=== PATIENT | female | born 1975 | race Caucasian/White ===

== ENCOUNTER → 2018-08-10 11:02 | Outpatient (CLI) | payer SELFPAY ==
[2016-04-01 07:04] VITALS: BMI 28.6
[2018-08-10 14:58] LABS: Color, Urine Yellow (Yellow); Glucose, Dipstick Normal (Normal); Ketone-Dipstick 5 mg/dl (Negative); Leukocyte Esterase-Dipstick 25 /ul (Negative); Nitrite-Dipstick Negative (Negative); Occult Blood-Urine Negative /ul (Negative); Protein-Dipstick Negative (Negative); Urine Bilirubin Dipstick Negative (Negative); Urine Clarity Sl. Cloudy (Clear); Urine Urobilinogen Normal (Normal)
[2018-08-10 14:59] LABS: Absolute Lymphocyte Count 1.54 X10^3/ul (0.83-4.51); Absolute Neutrophil Count 7.6 X10^3/uL (2.0-7.7); Basophil# 0.01 X10^3/uL; Basophil% 0.1 % (0-1); Eosinophil# 0.03 X10^3/uL; Eosinophils% 0.3 % (0-5); Hematocrit 40.8 % (37-47); Hemoglobin 13.6 g/dl (12.0-15.0); Lymphocyte # 1.54 X10^3/ul (4.0); Lymphocyte % 15.6 % (19-41); Mean Corp Hgb Conc 33.3 g/gl (32-36); Mean Corpuscular Hgb 28.3 pg (27.0-32.0); Mean Platelet Vol. 10.7 fl (6.2-12.0); Monocyte# 0.62 X10^3/uL; Monocyte% 6.3 % (0-10); Neutrophil # 7.64 X10^3/uL (2.7-7.7); Neutrophil % 77.4 % (47-70); Platelet Count 219 K/mm3 (150-450); RBC Distribution Width CV 14.1 % (11.6-14.6); RBC Distribution Width SD 44.1 fl (35.1-43.9); White Blood Count 9.9 K/mm3 (4.4-11.0)
[2018-08-10 15:00] LABS: POSITIVE COUNT NO; POSITIVE DIFFERENTIAL NO; POSITIVE MORPHOLOGY NO
[2018-08-10 15:25] LABS: Thyroid Stim Hormone (TSH) 0.47 uIU/mL (0.358-3.74)
[2018-08-10 16:26] LABS: Chlamydia Trachomatis by PCR Negative (Negative); Neisserai gonorrhoeae by PCR Negative (Negative); Probe Check PASS; Sample Adequacy Control PASS; Specimen Processing Control PASS
[2018-08-13 10:12] LABS: HIV - WCH Non-Reactive (Nonreactive); Hepatitis B Surface Antigen Non-Reactive (Nonreactive); Hepatitis C Antibody Non-Reactive (Nonreactive); Rubella IgG 145.1 IU/mL
[2018-08-17 05:48] LABS: Prenatal RPR NONREACTIVE (NONREACTIVE)
== END ==
PROVIDERS: Visit Provider Obstetrics & Gynecology
DX: Z11.3 Encounter for screening for infections with a predominantly sexual mode of transmission (principal); N91.2 Amenorrhea, unspecified; Z34.81 Encounter for supervision of other normal pregnancy, first trimester
CPT/HCPCS: 36415; 81002; 84443; 84702; 85025; 86703; 86762; 86803; 87340; 87491; 87591

== ENCOUNTER → 2018-12-06 10:03 | Outpatient (CLI) | payer SELFPAY ==
[2018-12-06 11:10] LABS: Hemoglobin 11.3 g/dL (12.0-15.0); Mean Corp Hgb Conc 32.3 g/dL (32-36); Mean Corpuscular Volume 92.8 fL (81-99); Mean Platelet Vol. 10.5 fl (6.2-12.0); Platelet Count 179 K/mm3 (150-450); RBC Distribution Width CV 14.9 % (11.6-14.6); RBC Distribution Width SD 51.4 fl (35.1-43.9); Red Blood Count 3.77 M/mm3 (4.2-5.4)
[2018-12-06 11:16] LABS: Glucose Challenge Gest 1H 50g 194 mg/dL (70-140)
== END ==
PROVIDERS: Visit Provider Obstetrics & Gynecology
DX: Z34.83 Encounter for supervision of other normal pregnancy, third trimester (principal)
CPT/HCPCS: 36415; 82950; 85027

== ENCOUNTER → 2019-02-07 11:26 | Outpatient (CLI) | payer SELFPAY ==
[2016-04-01 07:04] VITALS: BMI 28.6
== END ==
PROVIDERS: Referring Provider Obstetrics & Gynecology; Visit Provider Obstetrics & Gynecology
DX: Z36.85 Encounter for antenatal screening for Streptococcus B (principal)
CPT/HCPCS: 87077; 87081; 87186

== ENCOUNTER 2019-02-22 19:03 | Inpatient (IN) | payer SELFPAY ==
[2016-04-01 07:04] VITALS: BMI 28.6
[2019-02-22 19:41] LABS: Bedside Glucose 98 mg/dL (70-110)
[2019-02-22] MEDS: Lactated Ringers 1,000 ML 200 ML IV (19:45)
[2019-02-22 19:54] LABS: Absolute Lymphocyte Count 1.42 X10^3/uL (0.83-4.51); Absolute Neutrophil Count 8.7 X10^3/uL (2.0-7.7); Basophil# 0.02 X10^3/uL; Basophil% 0.2 % (0-1); Eosinophil# 0.03 X10^3/uL; Eosinophils% 0.3 % (0-5); Hematocrit 38.4 % (37-47); Hemoglobin 12.6 g/dL (12.0-15.0); Lymphocyte # 1.42 X10^3/ul (4.0); Mean Corp Hgb Conc 32.8 g/dL (32-36); Mean Corpuscular Hgb 29.6 pg (27.0-32.0); Mean Corpuscular Volume 90.4 fL (81-99); Monocyte# 0.68 X10^3/uL; Monocyte% 6.2 % (0-10); NRBC Flagged by Analyzer 0 % (0-5); Neutrophil % 79.7 % (47-70); Platelet Count 171 K/mm3 (150-450); RBC Distribution Width SD 52.3 fl (35.1-43.9); Red Blood Count 4.25 M/mm3 (4.2-5.4); White Blood Count 10.9 K/mm3 (4.4-11.0)
[2019-02-22] MEDS: Oxytocin 30 units/NS 500 ml 30 UNITS/500 ML IV.SOLN 334 UNITS IV (20:04)
--- NOTE | 2019-02-22 20:15 | PCM.HP.BLA ---
History and Physical Date of Admission: 02/22/19 ACOG ANTEPARTUM RECORD - HISTORY AND PHYSICAL (02/22/2019) Name: CANDELARIA PRUITT History of This : This is a 43-year-old 8 para 3 AB 4 who presents to labor and delivery in advanced labor. Patient had rupture of membranes at about 5 PM today and presented to labor and delivery at approximately 7 PM in active labor. care has been uneventful except for gestational diabetes controlled well with glyburide. She does have a history of rapid second stage with her third child. She was scheduled for induction next Monday. OB Physician: ALEXANDRE 's Physician: PED BRAKE ADJUSTER ...................................................................... : 1975 Age: 43 Address: [address] [place] [address] Phone: (H) [phone] (O) [phone] Insurance Carrier: Emergency Contact: SRIDEVI DANG [phone] ...................................................................... Final FRANCE: 03/05/19 By Ultrasound: 10 weeks 3 days PARITY: (G-Total Pregnancies P-Fullterm,Premature,Induced AB,Spont AB, Ectopics, Multiple,Living) FRANCE CONFIRMATION: By LMP: 06/04/18 Final FRANCE: 03/05/19 OB PROBLEM LIST: AMA - MSAFP and cfDNA testing declined CF testing declined GBS + x 3 in the past Hx of 4 SAB's Patient with Gestational DM; try diet control first --FBS not controlled with diet; start Glyburide; start BPP/NST weekly Rapid second stage with third child ALLERGIES: NKA NKDA Sulfa Nauseated MEDICATIONS: glyburide 5 mg tablet One by mouth once a day with dinner Vitamin Tablet daily Prometrium 200 Mg Capsule take 1 tablet q 12 hours SOCIAL HISTORY: Smoking - Never Alcohol Use - denies drinking Diet - balanced Diet Lifestyle - low stress lifestyle and Exercise - regular 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 Illicit Drug Use - denies use of street drugs Sexual Activity - Residence - lives with Place of - No [place] Spouse-Sig Other Name - Wilmer Spouse-Sig Other Occupation - [employer]--co-band cutting machine operator Spouse-Sig Other Phone No - [phone] Children Name(s) - Myesha (12) Alexander (14), Ezekiel (17) PRIOR DELIVERY HISTORY DEL DATE GEST LAB WT LB WT OZ TYPE ANES LABOR TX 06 Sep 14 40 12 8 2 Vag Epidural No 10 Sep 10 7 0 0 0 Sab Epidural No 15 May 15 10 0 0 0 Vag Epidural No 15 Mar 11 5 0 0 0 Sab None No 17 Apr 01 39 5 8 4 Vag Epidural No Feb 19 5 0 0 0 Sab None No Feb 12 40 7 6 12 Vag Epidural No ANTEPARTUM FLOW CHART VISIT RTC FU F F DC U U DATE WK MD WKS HT PN HR M SS BP ED WT DC GL D EF ST __ ____ ___ __ __ ___ __ __ __ ___ __ __ __ ___ __ 09 Feb JMW 1 38 V + + 114/76 sl 172 - - 2+ 80 -1 Feb JMW 1 37 + + 110/76 sl 172 - - Jan JMW + + / 0 175 - - Jan JMW 1 36 V + + 118/70 sl 171 - - 1+ 75 -2 Jan JMW 1 35 + + 110/72 sl 172 - - Jan JMW 1 34 V + + 110/70 0 169 tr - 05 Jan JMW 1 33 + + 104/70 0 169 tr - Dec JMW 2 31 + + 136/78 0 168 tr - Jan 12 JMW 1 30 + + 136/86 0 171 - - Dec 09 JMW 4 28 + + 130/76 tr 171 tr 1+ 27 Nov 05 JMW 4 24 + + 124/84 0 164 tr - Oct 01 JMW 4 20 + US 138/82 0 162 tr - Aug 26 JMW 5 14 U+ 116/76 161 tr - ANTEPARTUM NOTE(S): Feb 21 2019: Blood sugar log copied for review. Feb 14 2019: Feeling well., BPP 11/22; BS marginal but diet excursions Feb 11 2019: Feb 07 2019: Doing well. Blood sugars copied for review Jan 31 2019: Periods of heart palpitations x 3-4 d, while resting Jan 24 2019: good BS control now; BPP 10/10 Jan 17 2019: FBS still 100-105; inc Glyburide to 5.0 mg Jan 03 2019: good FM; start PM glyburide, call with BS 1 wk Dec 26 2018: cold symptoms., FBS elevated---modify diet Dec 06 2018: CBC,OGCT Today,Good FM,Acid Reflux Nov 09 2018: Glucola/Instructions Given,Good FM Oct 11 2018: Feeling Well, Good FM, US OK Sep 07 2018: Stomach issues, feeling better today COMPREHENSIVE ANTEPARTUM NOTE(S): Feb 21 2019: Scheduled for Induction at [facility] L and D on 02/27/19 to arrive at 0700 to call at 0500. Questions answered and consents signed. Spoke with Gregorio WALKER JD Feb 21 2019: Candelaria is here for her NST at 38 w 2 d. She states that she is tired, otherwise, okay. She reports good FM. Denies spotting/LOF. States that she has periods of more uncomfortable ctx's, but this resolves. Minimal edema noted below knees. Mild variable decels noted on EEFM, acoustic stim used x 1. NST reactive, read per Dr. Vinson, but will have already scheduled BPP for mild variable decels. AW Feb 14 2019: Candelaria is here for her NST at 37 w 2 d. She states that she is feeling well, States that she has been noting less cramping than she was experiencing over last weekend, and Monday. Reports good FM. Denies spotting/leaking fluid. Slight edema noted below knees. NST reactive, read per Dr. Vinson. AW Feb 11 2019: H taken to OB. tkg Feb 07 2019: Candelaria is here for her NST at 36 w 2 d. She states that she feels tired, but good. She notes good FM. Spotting/leaking fluid denied. She states that she feels occasional mild cramping. Slight edema noted around ankles/ NST reactive, read per Savanna Breen CNM. AW Feb 07 2019: BPP 09/20. NST single subtle ? late likely variable. Check NST Monday. Call or to L and D if any decreased movement. Jan 31 2019: Candelaria is here for her NST at 35 w 2 d. She states that she is feeling well generally, but for the past 3-4 days she has been experiencing rapid heart beat that occurs while she is resting/sitting, and lasts approximately 30-60 seconds. Denies caffeine intake, new medications, lack of sleep. She states that she does not notice tachycardia at night. Denies SOB with tachycardiac episodes. Dr. Vinson notified. Candelaria states that she notes good FM. Denies spotting/cramping/leaking fluid. Slight edema noted. NST reactive, read per Dr. Vinson. AW Jan 31 2019: Good BS control. Avoid caffeine and stimulants and increase po water. Jan 24 2019: Candelaria is here for her NST at 34 w 2 d. She reports that she has a cold. Has been noting off and on bladder pressure for several days. Not sure she is completely emptying her bladder. CCMS urine specimen obtained. Long urine dip shows specific gravity of 1.010, pH of 6, and TR protein; all other values are NEG. Candelaria reports good FM. Feels occasional mild cramping. Denies spotting/leaking fluid. Slight edema noted below knees. NST reactive, read per Dr. Vinson. Report of bladder pressure/long dip to DR. Vinson. Blood sugar log copies obtained for review. AW Jan 17 2019: NST/EEFM explained. NST reactive, read per Dr. Vinson. AW Jan 03 2019: Copied blood sugars for review. FILEMON Dec 06 2018: Reports +Fm, discussed after this point to do kick counts if noticing less movement, understands method. FHR 150. Feeling well, nausea has subsided, but now has acid reflux. Knows its because she eats right before bed and doesn't sleep propped. Trying two tums at HS. Educated on increased water, elevation for sleep and not eating within two hours of sleep. Will call if worsens and needing Rx. Reviewed warning signs and when to call office. Will return in 4 weeks to see GINNY, discussed with MD clark. Prefers him only for . Reviewed recommnedations for extra testing for AMA and declines at this time - Sep 12 2018: Candelaria stating she has 5 days left of Prometrium 200mg taking one q 12 hrs and was told at her visit 09/07 to keep taking. She will need RF's if she is to continue. Are you planning to keep her on this ? Or is she to stop ? Sep 07 2018: Candelaria is here for her NOB visit at 14 w 3 d, she is a A4 L3 with an FRANCE of 03/04/2019. She and her , Wilmer, have one daughter and two sons at home, all of whom were delivered by at [facility]. She states that she was GBS+ for all three of her children. Past history updated. Candelaria is familiar with office practice patterns, and her labs were drawn at her last visit. Delivery at [facility] with an epidural is planned and she will formula feed the baby. Emergencies/danger signs to report, round ligament pain, reporting s/s of a UTI, and common OTC medications approved/not approved for use during reviewed. She is a life long non-smoker, and denies use of drugs or ETOH. Candelaria has been taking an OTC vitamin and state sthat she tolerates these well. Genetic Screening form completed, AMA and 4 SAB's being of note. She declines MSAFP and CF testing, consent signed as such. She also declines cfDNA testing. She takes Prometrium, as per order. Candelaria states that she experienced some first trimester nausea/food aversions, but that had mostly resolved; but she states that after eating on Monday she has had stomach issues, like nausea and diarrhea. She states that today she is starting to feel better. She has not eaten or kept much food in this week, and has been trying to eat small amounts of bland foods. Candelaria states that she generally eats a well balanced diet, limiting empty calories, and drinking plenty of water. Reviewed water and dietary needs during , including caloric needs, and limiting caffeien to one cup a day. Printed guide for food safety provided with review. Candelaria states that she keeps physically active, and knows lifting restrictions. Kegel exercises reviewed. She states that she has no questions following NOB visit, and voices understanding of all information provided during same. FHT's checked with Doppler before NOB visit started, as Candelaria was concerned about the baby since she's been sick. FHT's 150's noted low midline, with Doptone. Candelaria states that she feels better after hearing FHT's. AW New Aug 10 2019: Candelaria is being seen for missed menses. . UPT in office is faintly positive. LMP 422-19. Pt is about 9 weeks and 4 days. FRANCE 1-27-20. Pap and cultures due today. Pt states she has been taking the prometrium since her missed AB in February. information gone over. Pt did state she had some bleeding at the 4-5 week melissa but has not had any since. AM Aug 10 2019: ok REVIEW OF SYSTEMS: GENERAL - Denies fever, or chills SKIN - Denies rash, new skin lesions, or change in moles EYES - Denies blurred vision, or change in visual acuity EARS - Denies ear pain, or difficulty hearing NOSE - Denies nasal congestion, discharge, or bleeding MOUTH - Denies sore throat, or difficulty swallowing NECK - Denies pain or swelling RESPIRATORY - Denies shortness of breath, cough, wheezing CARDIOVASCULAR - Denies palpitations, chest pain, orthopnea, PND, peripheral edema, syncope or claudication GASTROINTESTINAL - Denies nausea, vomiting, diarrhea, constipation, Denies abdominal pain, melena and or bright red blood GENITOURINARY - Denies dysuria, frequency of urination, urgency, or hesitancy MUSCULOSKELETAL - Denies joint or muscle pain, or back pain NEUROLOGICAL - Denies localized numbness, weakness, or tingling PSYCHIATRIC - Denies depression, anxiety, substance abuse or suicide attempts ENDOCRINE - Denies heat or cold intolerance, weight loss or gain, increasing thirst HEMATO-IMMUNOLOGIC - Denies easy bruising, bleeding, oral ulcerations or recurrent infections GENETICS SCREENING: Age 35+ years: Yes Thalassemia: No Neural Tube Defect: No Down Syndrome: No NED-SACHS: No Sickle Cell Disease: No Hemophilia: No Musc. Dystrophy: No Cystic Fibrosis: No-declines screening Juan Pablo Chorea: No Mental Retardation: No Fragile X: No Other genetic: No Other defects: No SABs/still births: Yes x4 Drugs since LMP: Progesterone INFECTION HISTORY: High risk AIDS: No High risk Hepatitis: No Exposed to TB: No Exposed to Herpes: No Rash/viral illness since LMP: No History of STD: No Comments: Herpes simplex in genitals MENSTRUAL HISTORY: *Menses Amount/Duration: normal amountMenses Regularity: RegularFrequency: monthlyMenarche (Age Onset): 14* PAST SUMMARY: PARITY: 1. Total Pregnancies............ 8 2. Full Term Pregnancies........ 3 3. Premature.................... 0 4. Abortions - Induced.......... 0 5. Abortions - Spontaneous...... 4 6. Ectopics..................... 0 7. Multiple Births.............. 0 8. Living Children.............. 3 PAST #1: Date of :.................. 09/22/09 Gestation Weeks:................ 7 Length of labor(hours):......... 0 Sex:............................ Weight-lbs:............... 0 Weight-oz:................ 0 Type of Delivery:............... Sab Type of Anesthesia:............. Epidural Place of Delivery:.............. HOME Treatment of Labor?:.... No Comment: SAB PAST #2: Date of :.................. 03/30/10 Gestation Weeks:................ 5 Length of labor(hours):......... 0 Sex:............................ Weight-lbs:............... 0 Weight-oz:................ 0 Type of Delivery:............... Sab Type of Anesthesia:............. None Place of Delivery:.............. HOME Treatment of Labor?:.... No Comment: SAB PAST #3: Date of :.................. 03/14/11 Gestation Weeks:................ 40 Length of labor(hours):......... 7 Sex:............................ F Weight-lbs:............... 6 Weight-oz:................ 12 Type of Delivery:............... Vag Type of Anesthesia:............. Epidural Place of Delivery:.............. [place] Treatment of Labor?:.... No Comment: NONE PAST #4: Date of :.................. 09/18/13 Gestation Weeks:................ 40 Length of labor(hours):......... 12 Sex:............................ M Weight-lbs:............... 8 Weight-oz:................ 2 Type of Delivery:............... Vag Type of Anesthesia:............. Epidural Place of Delivery:.............. [place] Treatment of Labor?:.... No Comment: PAST #5: Date of :.................. 05/28/14 Gestation Weeks:................ 10 Length of labor(hours):......... 0 Sex:............................ Weight-lbs:............... 0 Weight-oz:................ 0 Type of Delivery:............... Vag Type of Anesthesia:............. Epidural Place of Delivery:.............. [place] Treatment of Labor?:.... No Comment: PAST #6: Date of :.................. 04/01/16 Gestation Weeks:................ 39 Length of labor(hours):......... 5 Sex:............................ M Weight-lbs:............... 8 Weight-oz:................ 4 Type of Delivery:............... Vag Type of Anesthesia:............. Epidural Place of Delivery:.............. [place] Treatment of Labor?:.... No Comment: IOL, RAPID 2ND STAGE PAST #7: Date of :.................. 03/09/18 Gestation Weeks:................ 5 Length of labor(hours):......... 0 Sex:............................ Weight-lbs:............... 0 Weight-oz:................ 0 Type of Delivery:............... Sab Type of Anesthesia:............. None Place of Delivery:.............. none Treatment of Labor?:.... No Comment: DATE APPROX PHYSICAL EXAMINATION General Appearence: 43 yo female in no acute distress Vital Signs: AF, VSS Heart: RRR without rubs or gallops Lungs: CTA x 2 Breasts: deferred Abdomen: gravid Pelvis: Cervix: 6 cm 90% effaced gross rupture of membranes Presentation: cephalic Station: -1 Fetus: Size: AGA Movement: present Heart: present Labs for : CANDELARIA PRUITT since 06/08/2018 ORDER DATEIN DESCRIPTION VALUE UNITS RANGE A+ COMMENT CBC W/DIFF, AUTOMATED 02/22/19 NOTE Original Ordering Provider: Selvin Vinson WBC 10.9 K/mm3 4.4-11.0 RBC 4.25 M/mm3 4.2-5.4 HGB 12.6 g/dL 12.0-15.0 HCT 38.4 % 37-47 MCV 90.4 fL 81-99 MCH 29.6 pg 27.0-32.0 MCHC 32.8 g/dL 32-36 RDW CV 16.0 % 11.6-14.6 H RDW SD 52.3 fl 35.1-43.9 H PLT 171 K/mm3 150-450 MPV 11.0 fl 6.2-12.0 NEUT% 79.7 % 47-70 H LY% 13.0 % 19-41 L MONO% 6.2 % 0-10 EO% 0.3 % 0-5 BASO% 0.2 % 0-1 IM GRAN % 0.600 % 0.0-0.9 IG% - Immature Granulocytes (promyelocytes, myelocytes and metamyelocytes) > 1% indicates that a LEFT SHIFT is Present. ABSOLUTE NEUT 8.7 X10 3/uL 2.0-7.7 H ABSOLUTE LYMPH 1.42 X10 3/uL 0.83-4.51 NRBC, FLAGGED 0 % 0-5 BEDSIDE GLUCOSE 02/22/19 NOTE Original Ordering Provider: Selvin Vinson BEDSIDE GLU 98 mg/dL 70-110 MANAGEMENT OF PATIENT CARE PER NURSING PROTOCOL CULTURE, GROUP B STREPTOCOCCUS 02/07/19 NOTE Original Ordering Provider: Selvin Vinson IZA Culture ORGANISM 1: Streptococcus agalactiae (B) Amount Growth Growth Streptococcus agalactiae (B): REACTION Ampicillin $ <=0.25 S Benzylpenicillin NF <=0.06 S Ceftriaxone $ <=0.12 S Clindamycin $$ <=0.25 S Inducable Clindamycin Resistan NEG Linezolid $$$$ <=2 S Vancomycin $ 0.5 S Reference Range: S= Susceptible, I= Intermediate, R= Resistant MICS are expressed in micrograms per mL (NF) indicates non-formulary drug at [facility]. Approval by Infectious Disease Specialist required before non-formulary drugs may be ordered and/or dispensed. Testing performed on Vitek 2 instrument Reviewed by SELVIN Reviewed by SELVIN GLUCOSE TOLERANCE-3 HOUR 12/13/18 NOTE Original Ordering Provider: SELVIN VINSON GLUCOSE TOLERANCE-3 HOUR 3 HOUR GLUCOSE TOLERANCE Reference Range BLOOD Adult(non) Adult() FASTING _114 mg/dl <100 mg/dL 95 mg/dL 12/13/18.1444.JLN. 1 HOUR _232 mg/dl 70-115 mg/dL 180 mg/dL 12/13/18.1444.JLN. 2 HOUR _166 mg/dl <140 mg/dL 155 mg/dL 12/13/18.1444.JLN. 3 HOUR _123 mg/dl 70-115 mg/dL 140 mg/dL 12/13/18.1444.JLN. URINE-GLUCOSE Fasting......... _NA (NORMAL) 12/13/18.1443.JLN. 1 hour.......... _NA (NORMAL) 12/13/18.JLN. 2 hours......... _NA (NORMAL) 12/13/18.1443.JLN. 3 hours......... _NA (NORMAL) 12/13/18.1443.JLN. URINE-KETONES Fasting......... _NA (NEGATIVE) 12/13/18.1443.JLN. 1 hour.......... _NA (NEGATIVE) 12/13/18.JLN. 2 hour.......... _NA (NEGATIVE) 12/13/18.1443.JLN. 3 hour.......... _NA (NEGATIVE) 12/13/18.1443.JLN. Reviewed by SELVIN GLUCOSE CHALLENGE GEST 1H 50G 12/06/18 NOTE Original Ordering Provider: Selvin Vinson GLU GEST 50G 1H 194 mg/dL 70-140 H Reviewed by SELVIN CBC-COMPLETE BLOOD CNT NO DIFF 12/06/18 NOTE Original Ordering Provider: Selvin Vinson WBC 9.0 K/mm3 4.4-11.0 RBC 3.77 M/mm3 4.2-5.4 L HGB 11.3 g/dL 12.0-15.0 L HCT 35.0 % 37-47 L MCV 92.8 fL 81-99 MCH 30.0 pg 27.0-32.0 MCHC 32.3 g/dL 32-36 RDW CV 14.9 % 11.6-14.6 H RDW SD 51.4 fl 35.1-43.9 H PLT 179 K/mm3 150-450 MPV 10.5 fl 6.2-12.0 Reviewed by SELVIN RPR 08/10/18 NOTE Original Ordering Provider: Selvin Vinson RPR NONREACTIVE NONREACTIVE Reviewed by SELVIN HEPATITIS C ANTIBODY 08/10/18 NOTE Original Ordering Provider: Selvin Vinson HEPATITIS C AB Non-Reactive Nonreactive Non Reactive: < 0.8 Equivocal: >/= 0.8 to < 1.0 Reactive: >/= 1.0 The CDC recommends that a reactive/equivocal HCV antibody result be followed up by the HCV Nucleic Acid Amplification test (179134) Reviewed by SALLY HEPATITIS B SURFACE ANTIGEN 08/10/18 NOTE Original Ordering Provider: Selvin Dariondieter HEPB SURFACE AG Non-Reactive Nonreactive Reviewed by SALLY HIV - [facility] 08/10/18 NOTE Original Ordering Provider: Selvin Vinson HIV - [facility] Non-Reactive Nonreactive Reviewed by SALLY RUBELLA IGG 08/10/18 NOTE Original Ordering Provider: Selvin Vinson RUBELLA IGG 145.1 IU/mL Antibody results Interpretation of Immune Status < 5 IU/ml Presumed Non-immune 5 - < 10 IU/ml Equivocal > or = 10 IU/ml Presumed Immune Reviewed by SALLY T AND S-NO CHARGE W/PNP 08/10/18 Reason for Type AND Screen/Red Cells: Surgery? [facility]~[address] [place], [address]~ BLOOD TYPE GEL A POSITIVE N AB SCREEN GEL NEGATIVE N Reviewed by SELVIN THYROID STIM HORMONE (TSH) 08/10/18 NOTE Original Ordering Provider: Selvin Vinson TSH 0.47 uIU/mL 0.358-3.74 Reviewed by SELVIN CBC W/DIFF, AUTOMATED 08/10/18 NOTE Original Ordering Provider: Selvin Vinson WBC 9.9 K/mm3 4.4-11.0 RBC 4.80 M/mm3 4.2-5.4 HGB 13.6 g/dl 12.0-15.0 HCT 40.8 % 37-47 MCV 85.0 fL 81-99 MCH 28.3 pg 27.0-32.0 MCHC 33.3 g/gl 32-36 RDW CV 14.1 % 11.6-14.6 RDW SD 44.1 fl 35.1-43.9 H PLT 219 K/mm3 150-450 MPV 10.7 fl 6.2-12.0 NEUT% 77.4 % 47-70 H LY% 15.6 % 19-41 L MONO% 6.3 % 0-10 EO% 0.3 % 0-5 BASO% 0.1 % 0-1 IM GRAN % 0.300 % 0.0-0.9 IG% - Immature Granulocytes (promyelocytes, myelocytes and metamyelocytes) > 1% indicates that a LEFT SHIFT is Present. ABSOLUTE NEUT 7.6 X10 3/uL 2.0-7.7 ABSOLUTE LYMPH 1.54 X10 3/ul 0.83-4.51 Reviewed by SELVIN URINALYSIS, ROUTINE (DIPSTICK) 08/10/18 NOTE Original Ordering Provider: Selvin Vinson COLOR Yellow Yellow CLARITY Sl. Cloudy Clear GLUCOSE, UR Normal mg/dl Normal BILIRUBIN URINE Negative mg/dL Negative KETONE UR 5 mg/dl Negative H SP.GR. DIPSTX 1.020 1.002-1.030 PH UR 7.0 5.0 - 8.0 PROT DIPSTX Negative mg/dl Negative UROBILI Normal mg/dl Normal NITRITE UR Negative Negative OCCULT BLOOD-UR Negative /ul Negative LEUK ESTERASE 25 /ul Negative H Reviewed by SELVIN HCG TITER QUANT., SERUM 08/10/18 NOTE Original Ordering Provider: Selvin Vinson HCG QUANT. [id number] mIU/mL 1-3 H Critical Result(s) Called at: 11:53:44 08/10/2018 by: Marcellus Palmer RN hCG levels with Gestational Age Gestational Age hCG mIU/mL (IU/L) 0.2 - 1 week 5 - 50 1-2 weeks 50 - 500 2-3 weeks 100 - 5000 3-4 weeks 500 - 57874 4-5 weeks 1000 - 46850 5-6 weeks 83655 - 100,000 6-8 weeks 37207 - 200,000 2-3 months 10780 - 100,[address]/[facility] BY PCR 08/10/18 NOTE Original Ordering Provider: Selvin Vinson [facility] PCR Negative Negative NG BY PCR Negative Negative Reviewed by SELVIN Impression /Plan: 38+ week gestation in active advanced labor with gestational diabetes well controlled. Preparations in progress for delivery.
--- NOTE | 2019-02-22 20:20 | OP.PCM_ITS ---
Vaginal Delivery Maternal Presentation: Active Labor, Spontaneous Rupture of Membranes Amniotic Membrane Rupture Type: Spontaneous at home Rupture of Membrane time: 5:30 PM Amniotic Fluid Description: Clear Final FRANCE: 03/05/19 Final FRANCE Source: US <20 weeks Gestational age: 38 Weeks and 3 Days Date of Procedure: 02/22/19 Pre-Operative Diagnosis: IUP, Gestational Diabetes Post-Operative Diagnosis: IUP, Gestational Diabetes, Precipitous Delivery Surgery/ Procedure Performed: Spontaneous Vaginal Delivery Type of Anesthesia: None, - - Nitrous oxide Description of Procedure: Spontaneous vaginal delivery of a viable female with Apgars of 8/9 from an occiput anterior presentation with clear amniotic fluid and normal three- vessel placenta. No episiotomy. First-degree midline laceration repaired with a single [id number] 3-0 Vicryl suture using 1% lidocaine. Sponges okay. Delivery physician: Fady Foy MD. Presentation: Vertex Placental Delivery Description: Spontaneous Placenta Disposition: [facility] Cord Vessel Description: 3 Vessels Cord Entanglement: None Estimated Blood Loss: 250 cc A gender: Female (1 minute): 8 (5 minute): 9 Episiotomy Description: None Laceration: Midline, Perineal Extension/lac, 1st degree Medications given after delivery: IV Pitocin Complications: None
[2019-02-22 20:21] VITALS: BMI 27.8
--- NOTE | 2019-02-22 20:24 | DCINST_ITS ---
Discharge Activity: May Shower, May Take a Tub Bath May resume sexual activity in: 4-6 weeks Additional Activity Instructions:: Nothing in the vagina for 4-6 weeks. You may return to work/school in 6 weeks. Call your doctor if you observe: Fever of 101 or Higher, Inability to urinate, Inability to have a bowel movement, Using more than one pad per hour Additional Instructions: If you experience any of the following, contact your healthcare provider. * Bleeding that soaks a pad every hour for 2 hours * Unrelieved incision or abdominal pain * Swelling, redness, discharge or bleeding from your incision or episiotomy site * Your incision begins to separate * Problems urinating (including inability to urinate or burning while urinating). * Visual changes * Severe headache * Flu-like symptoms * Pain or redness in one of both of your breasts * Pain, warmth, tenderness or swelling in your legs, especially the calf area * Frequent nausea and vomiting * Symptoms of depression or anxiety If you experience any of the following, call 911 or go to the nearest Emergency Room. * Chest pain * Problems breathing * Seizure activity * Partial or complete paralysis of a body part, slurred speech, weakness or drooping of the face, or a sudden inability to walk or hold your balance Allergies/Adverse Reactions: Allergies No Known Allergies Allergy (Verified 09/18/13 01:58) Medications to take at Discharge Prenatabs FA 1 tab PO DAILY 09/03/13 Please Follow Up With: Fady Foy MD - [phone] When: Call to make an appointment with your doctor in 6 weeks. Test Results: Test results from this visit will be discussed in further detail at your follow- up appointment, if applicable.
--- NOTE | 2019-02-22 20:24 | PCM.DCVAG ---
Discharge Activity: May Shower, May Take a Tub Bath May resume sexual activity in: 4-6 weeks Additional Activity Instructions:: Nothing in the vagina for 4-6 weeks. You may return to work/school in 6 weeks. Call your doctor if you observe: Fever of 101 or Higher, Inability to urinate, Inability to have a bowel movement, Using more than one pad per hour Additional Instructions: If you experience any of the following, contact your healthcare provider. Bleeding that soaks a pad every hour for 2 hours Unrelieved incision or abdominal pain Swelling, redness, discharge or bleeding from your incision or episiotomy site Your incision begins to separate Problems urinating (including inability to urinate or burning while urinating). Visual changes Severe headache Flu-like symptoms Pain or redness in one of both of your breasts Pain, warmth, tenderness or swelling in your legs, especially the calf area Frequent nausea and vomiting Symptoms of depression or anxiety If you experience any of the following, call 911 or go to the nearest Emergency Room. Chest pain Problems breathing Seizure activity Partial or complete paralysis of a body part, slurred speech, weakness or drooping of the face, or a sudden inability to walk or hold your balance Allergies/Adverse Reactions: Allergies No Known Allergies Allergy (Verified 09/18/13 01:58) Medications to take at Discharge Prenatabs FA 1 tab PO DAILY 09/03/13 Please Follow Up With: Fady Foy MD - [phone] When: Call to make an appointment with your doctor in 6 weeks. Test Results: Test results from this visit will be discussed in further detail at your follow-up appointment, if applicable.
[2019-02-22 22:30] VITALS: BP 126/86; PULSE 77; RESP 20; TEMP 36.9
[2019-02-22 22:30] LABS: Bedside Glucose 108 mg/dL (70-110)
[2019-02-22] MEDS: 0.9% Saline Lock 10 ML Syringe IV (23:06)
[2019-02-23] VITALS: BP 127/70; PULSE 87; RESP 20; TEMP 36.6
[2019-02-23 04:20] VITALS: BP 131/86; PULSE 80; RESP 18; TEMP 36.7
[2019-02-23 08:10] LABS: Bedside Glucose 131 mg/dL (70-110)
[2019-02-23 10:00] VITALS: BP 133/76; PULSE 87; RESP 16; TEMP 36.3
[2019-02-23 14:00] VITALS: BP 128/85; PULSE 83; RESP 16; TEMP 36.3
[2019-02-23 18:00] VITALS: BP 138/88; PULSE 91; RESP 16; TEMP 36.8
--- NOTE | 2019-02-23 18:21 | PCM.PN.OB ---
Subjective: This is a late entry for today at 1110 Pain well controlled, tolerating diet, passing flatus; infants breast/bottle feeding well; spouse bedside and supportive; inadequate GBS tx r/t fast labor, likely to be kept for observation for an extra 24 hours Objective: AVSS Breasts soft Fundus firm, midline, u/1, lochia small Perineal repair well approximated, mild edema, no drainage, erythema or ecchymosis noted - Physical Exam Vitals/I&O's: Vital Signs Temp Pulse Resp BP 98.2 F 91 16 138/88 H 02/23/19 18:00 02/23/19 18:00 02/23/19 18:00 02/23/19 18:00 Oxygen Delivery Method Room Air Weight: 172 lb 9.951 oz Body Mass Index (BMI) 27.8 Intake and Output for Last 24 Hours 02/21/19 02/22/19 02/23/19 23:59 23:59 23:59 Intake Total 613.33 / 613.33 Output Total 50 / 50 700 / 700 Balance 563.33 / 563.33 -700 / -700 General: Alert, Oriented x3, Cooperative, No apparent distress HEENT: PERRLA, EOMI Oral: Moist Mucosa Neck: Supple Lungs: Clear to auscultation, Normal air movement Cardiovascular: Regular rate, Regular Rhythm Abdomen: Bowel Sounds Present, Soft, Non Tender, Non-Distended, Passing Flatus Extremities: No edema, Capillary Refill Less than 3 Seconds, No Calf Tenderness Skin: No rashes Musculoskeletal: No Tenderness to Palpation of Joints or Extremities Neurological: Cranial nerves II-XII grossly intact, Deep Tendon Reflexes 2+/4 and Symmetrical, Neuro grossly intact Psych/Mental Status: Normal Affect, Appropriate Laboratory Results 02/22/19 19:33: POC Glucose 98 02/22/19 19:45: WBC 10.9, RBC 4.25, Hgb 12.6, Hct 38.4, MCV 90.4, MCH 29.6, MCHC 32.8, RDW Std Deviation 52.3 H, RDW Coeff of Dolores 16.0 H, Plt Count 171, MPV 11.0, Immature Gran % (Auto) 0.600, Neut % (Auto) 79.7 H, Lymph % (Auto) 13.0 L, [place] % (Auto) 6.2, Eos % (Auto) 0.3, Baso % (Auto) 0.2, Absolute Neuts (auto) 8.7 H, Absolute Lymphs (auto) 1.42, Nucleated RBC % 0 02/22/19 19:45: Blood Type A POSITIVE, Antibody Screen NEGATIVE 02/22/19 21:49: POC Glucose 108 02/23/19 07:59: POC Glucose 131 H Current Medications Acetaminophen (Tylenol) 1,000 mg PO Q8H PRN PRN PRN Reason: Pain Score 1-3/10 Bisacodyl (Dulcolax) 10 mg RECTAL UD PRN PRN Reason: If no BM Dibucaine (Dibucaine) 1 applic TOPICAL TID PRN PRN; Protocol PRN Reason: Discomfort Hydrocortisone (Hytone) 1 applic TOPICAL TID PRN PRN; Protocol PRN Reason: Discomfort Ibuprofen (Motrin) 600 mg PO Q6H PRN PRN PRN Reason: Pain Score 1-3/10 Methylergonovine Maleate (Methergine) 0.2 mg IM X1 PRN PRN Reason: Excess bleeding/uterine atony Oxycodone HCl (Oxyir) 5 - 10 mg PO Q4H PRN PRN PRN Reason: Pain Score 4-10/10 Senna/Docusate Sodium (Senokot-S, Samanta-Colace) 1 - 2 tablet PO DAILY PRN PRN PRN Reason: Constipation Simethicone (Mylicon) 80 mg PO PCHS PRN PRN Reason: Indigestion/Stomach pain Zolpidem Tartrate (Ambien (Generic)) 5 mg PO QHS PRN PRN PRN Reason: Insomnia Medical Necessity - Tobacco Use Smoking Status: Never smoker Assessment/Plan Assessment: 43yo delivered via at 40w1d by 10w3d US PP day #1, normal involution, normal course GBS positive during , inadequate antibiotic prophylaxis during labor Plan: Discharge teaching started Discharge home tomorrow when discharged RTO 6 weeks for checkup
[2019-02-23 20:00] VITALS: BP 134/85; PULSE 76; RESP 16; TEMP 36.9
[2019-02-24 01:29] VITALS: BP 130/77; PULSE 91; RESP 18; TEMP 36.4
[2019-02-24 08:30] VITALS: BP 139/86; PULSE 80; RESP 16; TEMP 36.6
--- NOTE | 2019-02-24 08:44 | PCM.PN.OB ---
Subjective: Pain well controlled, tolerating diet, passing flatus, has had a bowel movement; bottle feeding well and will be discharged home by pediatrics today; spouse bedside and supportive; planning vasectomy for contraception, condoms until then;l desires discharge home today Objective: AVSS Breasts soft, filling; wearing bra to help suppress Fundus firm, midline, u/2, lochia small Perineal repair well approximated, minimal edema, no drainage, erythema or ecchymosis noted - Physical Exam Vitals/I&O's: Vital Signs Temp Pulse Resp BP 97.9 F 80 16 139/86 H 02/24/19 08:30 02/24/19 08:30 02/24/19 08:30 02/24/19 08:30 Oxygen Delivery Method Room Air Weight: 172 lb 9.951 oz Body Mass Index (BMI) 27.8 Intake and Output for Last 24 Hours 02/22/19 02/23/19 02/24/19 23:59 23:59 23:59 Intake Total 613.33 / 613.33 Output Total 50 / 50 700 / 700 Balance 563.33 / 563.33 -700 / -700 General: Alert, Oriented x3, Cooperative, No apparent distress HEENT: PERRLA, EOMI Oral: Moist Mucosa Neck: Supple Lungs: Clear to auscultation, Normal air movement Cardiovascular: Regular rate, Regular Rhythm Abdomen: Bowel Sounds Present, Soft, Non Tender, Non-Distended, Passing Flatus Extremities: No edema, Capillary Refill Less than 3 Seconds, No Calf Tenderness Skin: No rashes Musculoskeletal: No Tenderness to Palpation of Joints or Extremities Neurological: Cranial nerves II-XII grossly intact, Deep Tendon Reflexes 2+/4 and Symmetrical, Neuro grossly intact Psych/Mental Status: Normal Affect, Appropriate, Alert and oriented to time, place, person, mood and affect Current Medications Acetaminophen (Tylenol) 1,000 mg PO Q8H PRN PRN PRN Reason: Pain Score 1-3/10 Bisacodyl (Dulcolax) 10 mg RECTAL UD PRN PRN Reason: If no BM Dibucaine (Dibucaine) 1 applic TOPICAL TID PRN PRN; Protocol PRN Reason: Discomfort Hydrocortisone (Hytone) 1 applic TOPICAL TID PRN PRN; Protocol PRN Reason: Discomfort Ibuprofen (Motrin) 600 mg PO Q6H PRN PRN PRN Reason: Pain Score 1-3/10 Methylergonovine Maleate (Methergine) 0.2 mg IM X1 PRN PRN Reason: Excess bleeding/uterine atony Oxycodone HCl (Oxyir) 5 - 10 mg PO Q4H PRN PRN PRN Reason: Pain Score 4-10/10 Senna/Docusate Sodium (Senokot-S, Samanta-Colace) 1 - 2 tablet PO DAILY PRN PRN PRN Reason: Constipation Simethicone (Mylicon) 80 mg PO PCHS PRN PRN Reason: Indigestion/Stomach pain Zolpidem Tartrate (Ambien (Generic)) 5 mg PO QHS PRN PRN PRN Reason: Insomnia Medical Necessity - Tobacco Use Smoking Status: Never smoker Assessment/Plan Assessment: 43yo delivered via at 40w1d by 10w3d US PP day #2, normal involution, normal course GBS positive during , inadequate antibiotic prophylaxis during labor Plan: Discharge teaching completed Discharge home today when discharged RTO 6 weeks for checkup
== END 2019-02-24 10:55 | disposition home or self-care (01) | DRG 807 ==
PROVIDERS: Admitting Provider Obstetrics & Gynecology; Referring Provider Obstetrics & Gynecology; Visit Provider Obstetrics & Gynecology
DX: O62.3 Precipitate labor (principal); Z37.0 Single live birth; O24.429 Gestational diabetes mellitus in childbirth, unspecified control; O70.0 First degree perineal laceration during delivery; O99.824 Streptococcus B carrier state complicating childbirth; O26.23 Pregnancy care for patient with recurrent pregnancy loss, third trimester; Z3A.38 38 weeks gestation of pregnancy
CPT/HCPCS: 59025; 59050; 82962; 85025; 86850; 86900; 86901; 99218; J7120; A4216; G0378